=== PATIENT | female | born 1970 | race Hispanic/Latino ===

== ENCOUNTER 2024-03-28 17:58 | Emergency (ER) | payer OTHER ==
[~2024-03-28] VITALS: Ht 162.6 cm; Wt 73.5 kg
[~2024-03-28 17:58] MED LIST: ASA81EC PO; IBUPROFEN400 MG PO; MOBIC7.5 MG PO; PEPCID20 MG PO; PHENTERMINE H37.5 MG PO
[2024-03-28 21:05] VITALS: TEMP 98.6
[2024-03-28] MEDS: METHOCARBAMOL 750 MG TAB PO ONE (21:48)
[2024-03-28] MEDS: KETOROLAC TROMETHAMINE 60 MG/2 ML VIAL IM ONE (21:49)
[2024-03-28 21:55] VITALS: PULSE 80; RESP 17
[2024-03-28] MEDS ORDERED: METHOCARBAMOL750 MG PO (23:03)
[2024-03-28 23:38] VITALS: BP 112/90; PULSE 78; RESP 17; TEMP 98.4; O2SAT 98
== END 2024-03-28 23:41 | disposition home or self-care (01) ==
LOC: ER 20:59
DX: M54.16 Radiculopathy, lumbar region (principal); M51.360 Other intervertebral disc degeneration, lumbar region with discogenic back pain only; M79.7 Fibromyalgia
CPT/HCPCS: 72131; 99283; J1885